=== PATIENT | female | born 1955 | race Caucasian/White ===

== ENCOUNTER → 2018-10-28 | Outpatient (CLI) | payer OTHER ==
[~2018-10-28] MED LIST: ALBU90OI INH; AMPDEX10; AMPDEX10 PO; BUPR100ER PO; BUPR150T2; Budeprion Xl300 MG; CLON.1 PO; Cleocin HCl300 MG PO; DILT120; DILT120 PO; DULO30; FAMC500 PO; FEXO180 PO; FLUSAL2505 IH; FLUSAL5005 INH; METO25 PO; MUPI2TC TOP; NAPR500 PO; NICO14TP TOP; Neurontin300 MG PO; OXYACE5T PO; PRED10 PO; PRED20 PO; PROACE100 PO; RXCLIN PO; RXPROACE PO; RXTOBROPSO OP; SULTRIDS PO; TOBR.3OPO OP; ZITHROMAX PO; [UNRECOGNIZED DRUG - REMARK]
[2018-10-28 15:20] LABS: Alanine Aminotransfer (ALT/SGP 36 U/L (12-78); Albumin, Blood 3.6 g/dL (3.4-5.0); Alk Phos 73 U/L (50-136); Anion Gap 6 mmol/L (6-16); Aspartate Aminotrans (AST/SGOT 18 U/L (12-37); Bilirubin, Total 0.3 mg/dL (0.1-1.0); Blood Urea Nitrogen 27 mg/dL (8-24); Bun/Creatinine Ratio 34.1 (12.0-20.0); CO2, Blood 25 mmol/L (21-32); Calcium, Blood 8.9 mg/dL (8.5-10.1); Chloride, Blood 109 mmol/L (98-108); Creatinine, Blood 0.79 mg/dL (0.40-1.00); Globulin, Blood 3.6 g/dL (2.2-4.0); Glomerular Filtration Rate >60 (60-); Glucose, Blood 118 mg/dL (70-99); Potassium, Blood 4.5 mmol/L (3.5-5.5); Sodium, Blood 140 mmol/L (136-145); Total Protein, Blood 7.2 g/dL (6.4-8.2)
== END ==
LOC: LAB 14:30 → LAB SHORT 14:30
PROVIDERS: Nurse Practitioner
DX: Z01.812 Encounter for preprocedural laboratory examination (principal); R91.8 Other nonspecific abnormal finding of lung field
CPT/HCPCS: 80053

== ENCOUNTER → 2019-05-18 | Outpatient (CLI) | payer SELFPAY | END | disposition home or self-care (01) | LOC: LAB 13:50 → LAB SHORT 13:50 | DX: L08.9 Local infection of the skin and subcutaneous tissue, unspecified (principal) | CPT/HCPCS: 87070; 87077; 87147; 87186; 87205 ==

== ENCOUNTER 2020-04-24 12:32 | Day surgery (SDC) | payer OTHER ==
[~2020-04-24] VITALS: Ht 165.1 cm; Wt 87.2 kg
[~2020-04-24 12:32] MED LIST changes: +BUDE6HFA INH
[2020-04-24] MEDS ORDERED: ELIQUIS5 MG (12:56)
[2020-04-24] MEDS ORDERED: METO25ER (12:56)
== END 2020-04-24 14:18 | disposition home or self-care (01) ==
LOC: ORSCSDS 12:32
PROVIDERS: Internal Medicine Gastroenterology
PROC: 0DJD8ZZ Inspection of Lower Intestinal Tract, Via Natural or Artificial Opening Endoscopic (ICD-10-PCS; principal; 2020-04-24 13:45)
DX: Z12.11 Encounter for screening for malignant neoplasm of colon (principal); K64.8 Other hemorrhoids; K57.30 Diverticulosis of large intestine without perforation or abscess without bleeding; I48.91 Unspecified atrial fibrillation; F41.8 Other specified anxiety disorders; J44.9 Chronic obstructive pulmonary disease, unspecified; F32.9 Major depressive disorder, single episode, unspecified; F17.210 Nicotine dependence, cigarettes, uncomplicated; E66.9 Obesity, unspecified; Z68.32 Body mass index [BMI] 32.0-32.9, adult; Z79.899 Other long term (current) drug therapy; Z79.01 Long term (current) use of anticoagulants
CPT/HCPCS: J2704; J7120

== ENCOUNTER → 2022-05-03 | Outpatient (CLI) | payer OTHER ==
[~2022-05-03] MED LIST changes: +ELIQUIS5 MG; +METO25ER
[2022-05-03 17:26] LABS: U Amphetamine Screen Not Detected; U Barbituate Screen Not Detected; U Benzodiazapine Screen Not Detected; U Buprenorphine Screen Not Detected; U Cannabinoids Screen Not Detected; U Cocaine Screen Not Detected; U Methadone Screen Not Detected; U Methamphetamine Screen Not Detected; U Opiates Screen Not Detected; U Oxycodone Screen Not Detected; U Phencyclidine Screen Not Detected; U Propoxyphene Screen Not Detected
== END | disposition home or self-care (01) ==
LOC: LAB FUT 04-20 09:50 → LAB 15:05 → LAB SHORT 15:05
PROVIDERS: Registered Nurse Pain Management
DX: M54.16 Radiculopathy, lumbar region (principal); Z79.891 Long term (current) use of opiate analgesic

== ENCOUNTER → 2022-05-08 | Outpatient (CLI) | payer OTHER ==
[2022-05-10 17:11] LABS: COTININE Negative ng/mL (Cutoff=300)
== END | disposition home or self-care (01) ==
LOC: LAB 09:54 → LAB SHORT 09:54 → LAB FUT 05-06 17:10
PROVIDERS: Neurological Surgery
DX: Z09 Encounter for follow-up examination after completed treatment for conditions other than malignant neoplasm (principal); Z87.891 Personal history of nicotine dependence

== ENCOUNTER 2024-07-28 17:32 | Emergency (ER) | payer OTHER ==
[~2024-07-28] VITALS: Ht 165.1 cm; Wt 113.4 kg
[2024-07-28 18:20] LABS: BASOPHILS ABSOLUTE AUTO 0.08 K/mm3 (0.00-0.23); BASOPHILS PERCENT AUTO 1 % (0-2); EOSINOPHILS ABSOLUTE AUTO 0.09 K/mm3 (0.00-0.68); EOSINOPHILS PERCENT AUTO 1 % (0-6); Hematocrit 44.8 % (33.0-51.0); Hemoglobin 14.5 g/dL (11.5-16.0); IMMATURE GRAN ABSOLUTE AUTO 0.04 K/mm3 (0.00-0.10); IMMATURE GRAN PERCENT AUTO 0 % (0-1); LYMPHOCYTES ABSOLUTE AUTO 3.78 K/mm3 (0.84-5.20); LYMPHOCYTES PERCENT AUTO 33 % (21-46); MONOCYTES ABSOLUTE AUTO 0.86 K/mm3 (0.16-1.47); MONOCYTES PERCENT AUTO 8 % (4-13); Mean Corpuscular HGB 29.4 pg (26.0-34.0); Mean Corpuscular HGB Conc 32.4 g/dL (31.5-36.5); Mean Corpuscular Volume 91 fL (80-100); Mean Platelet Volume 10.2 fL (9.1-12.4); NEUTROPHILS ABSOLUTE AUTO 6.64 K/mm3 (1.96-9.15); NEUTROPHILS PERCENT AUTO 58 % (41-73); Platelet Count 354 K/mm3 (150-400); RDW Coefficient Variation 13.9 % (11.7-14.2); RDW Standard Deviation 46.5 fL (35.1-46.3); Red Blood Cell Count 4.94 M/mm3 (3.80-5.20); White Blood Cell Count 11.49 K/mm3 (4.00-11.30)
[2024-07-28] MEDS ORDERED: DULO60 (18:37)
[2024-07-28] MEDS ORDERED: ATOR40TA PO (18:38)
[2024-07-28] MEDS ORDERED: CYCL10 PO (18:39)
[2024-07-28] MEDS ORDERED: GLIM4 PO (18:40)
[2024-07-28] MEDS ORDERED: Chantix1 MG PO (18:41)
[2024-07-28 18:59] LABS: Alanine Aminotransfer (ALT/SGP 46 U/L (12-78); Albumin, Blood 3.3 g/dL (3.4-5.0); Albumin/Globulin Ratio 0.8 (0.8-1.8); Alk Phos 123 U/L (50-136); Anion Gap 12 mmol/L (3-11); Aspartate Aminotrans (AST/SGOT 28 U/L (12-37); Bilirubin, Total 0.2 mg/dL (0.1-1.0); Blood Urea Nitrogen 25 mg/dL (8-24); Bun/Creatinine Ratio 33.3 (12.0-20.0); CO2, Blood 24 mmol/L (21-32); Calcium, Blood 9.1 mg/dL (8.5-10.1); Chloride, Blood 108 mmol/L (98-108); Creatinine, Blood 0.75 mg/dL (0.40-1.00); Ethanol (Alcohol), Blood, Med <3 mg/dL; Glomerular Filtration Rate 87 (60-); Glucose, Blood 122 mg/dL (70-99); Potassium, Blood 4.2 mmol/L (3.5-5.5); Sodium, Blood 140 mmol/L (136-145); Total Protein, Blood 7.3 g/dL (6.4-8.2)
[2024-07-28] MEDS ORDERED: Ondansetron HCl 2 MG / ML 2ML Vial IV ONE (19:55)
[2024-07-28] MEDS ORDERED: NS 1,000 ML IV SCH (19:55)
[2024-07-28] MEDS ORDERED: Ketorolac Tromethamine 15mg Vial IV ONE (20:15)
[2024-07-28 20:18] LABS: International Normalized Ratio 0.98; Prothrombin Time Results 10.5 Sec (9.7-11.5)
[2024-07-28] MEDS ORDERED: Acetaminophen 500 MG Tab PO ONE (20:20)
[2024-07-28] MEDS ORDERED: Dexamethasone Sod Phos 10 MG/ML 1ML VIAL IV ONE (21:45)
[2024-07-28] MEDS ORDERED: DiphenhydrAMINE HCl 50 MG/ML 1ML Vial IV ONE (21:45)
[2024-07-28] MEDS ORDERED: Prochlorperazine Edisylate 10 mg Vial IV ONE (21:45)
[2024-07-28] MEDS ORDERED: Valproic Acid Syrup 250MG / 5ML 1 ML PO ONE (21:45)
[2024-07-28 23:00] VITALS: BP 121/57
== END 2024-07-29 00:12 | disposition home or self-care (01) ==
LOC: ER 17:32
PROVIDERS: Student in an Organized Health Care Education/Training Program
DX: R51.9 Headache, unspecified (principal); H53.9 Unspecified visual disturbance; F17.200 Nicotine dependence, unspecified, uncomplicated; Z79.52 Long term (current) use of systemic steroids; Z79.899 Other long term (current) drug therapy; Z88.0 Allergy status to penicillin; Z88.2 Allergy status to sulfonamides; Z91.041 Radiographic dye allergy status; Z88.6 Allergy status to analgesic agent; Z88.5 Allergy status to narcotic agent; Z88.1 Allergy status to other antibiotic agents
CPT/HCPCS: 70450; 70496; 70498; 80053; 80320; 82947; 85025; 85610; 85651; 85730; 86141; 93005; 93010; 96361; 96374-59; 96375-59; 99284-25; A9270; J0780; J1100; J1200; J1885; J2405; J7030; Q9967

== ENCOUNTER 2024-08-04 12:13 | Day surgery (SDC) | payer OTHER ==
[~2024-08-04] VITALS: Ht 165.1 cm; Wt 134.4 kg
[~2024-08-04 12:13] MED LIST changes: +ATOR40TA PO; +Balanced Salt Epinephrine Irrigation Solution 500 mL IR SCH; +CYCL10 PO; +Chantix1 MG PO; +DULO60; +GLIM4 PO; +Lidocaine HCl/Pf 1% 5 ML VIAL XX SCH; +Moxifloxacin HCL 0.5 MG/0.1 ML 0.4MLSYR LEFTEYE SCH; +NS 500 ML IV ONE; +PHENYLEPHRINE\\TROPICAMIDE\\TETRACAINE OPHTHALMIC DILATING SOLN LEFTEYE PRN; +Povidone-Iodine 450 DROP/30 ML Solution ONE; +Tetracaine HCl/Pf 0.5% Opth Soln 4 ml ONE
[2024-08-04] MEDS ORDERED: Diazepam 10 MG Tab ONE (12:45)
[2024-08-04] MEDS ORDERED: NS 500 ML IV ONE (13:34)
[2024-08-04 14:14] VITALS: BP 149/131
--- NOTE | 2024-08-04 15:57 | NUR ---
08/04/24 1556 Geni Mcgowan PT CAME INTO STEP DOWN WITH APPROXIMATELY 400 ML'S OF NORMAL SALINE IN HER IV BAG. IN STEPDOWN , APPROXIMATELY 5ML'S WERE RAN. iT WAS SHUT OFF AND DC'D. PT CAME INTO STEP DOWN VISIBLY UPSET AND WAS HAVING A CONVERSTAION WITH STAFF PHARMACIST JORDIN. sHE WAS HOOKED UP TO [employer] AND HAD HIGH BP. DR. HOLLIS CAME INTO ROOM AND SAW HIGH BP AND THEY TALKED ABOUT HER HAVING A PTSD TRIGGER. AFTER DR HOLLIS LEFT, PT TOLD ME SHE WOKE UP DURING SURGERY AND HAD SOMETHING OVER HER FACE AND FELT SHE COULD NOT MOVE AND HAD A RESPONSE FROM A TRAUMATIC EXPERIENCE A 10 YEAR OLD CHILD. IT WAS A FLASHBACK OF HER TRAUMA. PT WAS APOLOGETIC AND WE TALKED ABOUT NOT HAVING TO APOLOGIZE. WE THEN DISCUSSED WHAT SHE LOVED TO TRY AND LOWER BP. PT WAS VERY KIND AND RECEPTIVE
== END 2024-08-04 14:31 | disposition home or self-care (01) ==
LOC: ORSCSDS 12:13
PROVIDERS: Student in an Organized Health Care Education/Training Program
PROC: 08RK3JZ Replacement of Left Lens with Synthetic Substitute, Percutaneous Approach (ICD-10-PCS; principal; 2024-08-04 13:30)
DX: E11.36 Type 2 diabetes mellitus with diabetic cataract (principal); H25.812 Combined forms of age-related cataract, left eye; Z96.1 Presence of intraocular lens; I48.91 Unspecified atrial fibrillation; F32.A Depression, unspecified; F41.9 Anxiety disorder, unspecified; J44.9 Chronic obstructive pulmonary disease, unspecified; Z87.891 Personal history of nicotine dependence; Z79.85 Long-term (current) use of injectable non-insulin antidiabetic drugs; Z79.899 Other long term (current) drug therapy
CPT/HCPCS: 82947; A9270; J7040; V2632